=== PATIENT | male | born 1970 | race Caucasian/White ===

== ENCOUNTER → 2019-10-04 08:20 | Outpatient (CLI) | payer OTHER, SELFPAY ==
[2019-10-04 10:04] LABS: Erythrocyte Sedimentation Rate 11 mm/hr (0-20)
[2019-10-04 10:08] LABS: Absolute Lymphocyte Count 0.97 X10^3/uL (0.83-4.51); Absolute Neutrophil Count 3.6 X10^3/uL (2.0-7.7); Basophil# 0.05 X10^3/uL; Basophil% 0.9 % (0-1); Eosinophil# 0.18 X10^3/uL; Eosinophils% 3.4 % (0-5); Hematocrit 43.9 % (40-54); Hemoglobin 14.8 g/dL (13.0-16.5); Lymphocyte # 0.97 X10^3/ul (4.0); Lymphocyte % 18.3 % (19-41); Mean Corp Hgb Conc 33.7 g/dL (32-36); Mean Corpuscular Hgb 29.7 pg (27.0-32.0); Mean Corpuscular Volume 88.2 fL (80-94); Mean Platelet Vol. 11.2 fl (6.2-12.0); Monocyte# 0.47 X10^3/uL; Monocyte% 8.9 % (0-10); NRBC Flagged by Analyzer 0 % (0-5); Neutrophil # 3.62 X10^3/uL (2.7-7.7); Neutrophil % 68.1 % (47-70); Platelet Count 167 K/mm3 (150-450); RBC Distribution Width CV 12.9 % (11.6-14.6); RBC Distribution Width SD 41.1 fl (35.1-43.9); Red Blood Count 4.98 M/mm3 (4.6-6.2); White Blood Count 5.3 K/mm3 (4.4-11.0)
[2019-10-04 10:31] LABS: CRP 3.76 mg/L (0.0-3.0)
== END ==
PROVIDERS: Referring Provider Physician Assistant; Visit Provider Physician Assistant
DX: M17.12 Unilateral primary osteoarthritis, left knee (principal)
CPT/HCPCS: 36415; 85025; 85652; 86140

== ENCOUNTER 2021-07-09 08:39 | Outpatient (RCR) | payer OTHER, SELFPAY | END 2021-08-01 23:59 | LOC: DC 08:39 | PROVIDERS: Visit Provider Family Medicine | DX: E11.9 Type 2 diabetes mellitus without complications (principal) | CPT/HCPCS: 97802 ==

== ENCOUNTER 2021-08-05 14:24 | Outpatient (CLI) | payer OTHER, SELFPAY ==
--- NOTE | 2021-08-05 14:28 | CT_ITS ---
STUDY: CT LEFT LOWER EXTREMITY WITHOUT CONTRAST REASON FOR EXAM: Left knee osteoarthritis, surgical planning. TECHNIQUE: Transaxial CT imaging of the lower extremity was performed. Coronal and sagittal images were reformatted. Individualized dose optimization techniques were used for this CT. COMPARISON: None. FINDINGS: Knee: There are postoperative changes of the distal femur and proximal tibia with orthopedic hardware from anterior cruciate ligament reconstruction. There is arthrosis of the medial femorotibial compartment with marginal osteophytes, subchondral eburnation of the medial tibial plateau and joint space narrowing (coronal reconstruction 36). There are marginal osteophytes of the lateral femorotibial compartment with preservation of joint space. There is arthrosis of the patellofemoral compartment with marginal osteophytes and joint space narrowing at the medial aspect (axial image 359). Normal proximal tibiofibular articulation. There is a small joint effusion. The quadriceps tendon is grossly normal. There is a small ossification in the proximal patellar tendon. Normal Hoffa''s fat pad. There are multiple intra-articular bodies. There is chondrocalcinosis. Hip: There is joint space narrowing at the anterior superior aspect of the left hip joint (sagittal reconstruction 39). Ankle: There is preservation of joint space of the tibiotalar articulation. There is an anterior spur of the talar neck (sagittal reconstruction 20). There is mild joint space narrowing of the medial aspect of the posterior subtalar articulation (sagittal reconstruction 18). There is an orthopedic screw transfixing a calcaneal osteotomy. There is an os trigonum. There are anchors in the lateral malleolus. There is soft tissue swelling. CT/Extremity Lower without Contra IMPRESSION: Left knee osteoarthritis. Electronically Signed: Jeffery Hoang MD at 14:59 EST Tel , Service support ,
== END 2021-08-05 23:59 | disposition short-term general hospital (02) ==
LOC: CT 14:25
PROVIDERS: Referring Provider Physician Assistant; Visit Provider Physician Assistant
DX: M17.12 Unilateral primary osteoarthritis, left knee (principal)
CPT/HCPCS: 73700

== ENCOUNTER 2021-08-06 08:30 | Outpatient (RCR) | payer OTHER, SELFPAY | END 2021-09-01 23:59 | LOC: DC 08:30 | PROVIDERS: Visit Provider Family Medicine | DX: E11.9 Type 2 diabetes mellitus without complications (principal) | CPT/HCPCS: G0108 ==

== ENCOUNTER 2021-08-18 17:42 | Observation (INO) | payer OTHER, SELFPAY ==
--- NOTE | 2021-08-14 10:52 | EKG12_ITS ---
Test Reason : PRE OP Blood Pressure : / mmHG Vent. Rate : 067 BPM Atrial Rate : 067 BPM P-R Int : 178 ms QRS Dur : 086 ms QT Int : 404 ms P-R-T Axes : 038 058 041 degrees QTc Int : 426 ms Normal sinus rhythm Normal ECG Confirmed by KALPESH WILLIAMSON, RODRICK ([id number]), mapping editor GRACE MARSHALL ([id number]) on 08/15/2021 7:46:54 AM Referred By: Skip Cade Confirmed By:PIPE POSEY MD
--- NOTE | 2021-08-14 11:35 | RAD_ITS ---
STUDY: X-RAY CHEST REASON FOR EXAM: Male, 50 years old. PREOP TECHNIQUE: PA and lateral views of the chest. COMPARISON: None. FINDINGS: The lungs are clear and expanded. There is no demonstrated pleural abnormality. Normal size heart. Normal mediastinum and suleiman. Normal visualized pulmonary arteries. Normal visualized aortic arch and descending thoracic aorta. There are degenerative changes of the visualized thoracic spine. Normal visualized ribs, clavicles, and shoulders. There is no demonstrated abnormality of the visualized soft tissue structures of the upper abdomen. RAD/Chest PA and Lateral IMPRESSION: Normal x-ray examination of the chest. Electronically Signed: Roger Horn MD at 15:42 EST , Service support ,
[2021-08-14 12:42] LABS: Magnesium 2.2 mg/dL (1.6-2.6)
[2021-08-18] VITALS (15 sets, daily range): BP systolic 120–143; BP diastolic 68–96; PULSE 67–87; RESP 14–19; TEMP 35.7–37; O2SAT 90–98; BMI 44.5
[2021-08-18] MEDS: Gabapentin 600 MG Tablet PO (08:50)
[2021-08-18] MEDS: Celecoxib 200 MG Capsule 400 MG PO (08:50)
[2021-08-18] MEDS: Acetaminophen 500 MG Tablet 1000 MG PO ×2 (08:51→20:02)
[2021-08-18] MEDS: Lactated Ringers 1,000 ML 15 ML IV (08:52)
[2021-08-18 09:15] LABS: Bedside Glucose 159 mg/dL (70-110)
[2021-08-18] MEDS: Cefazolin 2 GM in 0.9% Normal Saline 100 ML IV (10:13)
--- NOTE | 2021-08-18 10:30 | KNEE_PTH ---
PATIENT: MYRA KEMP LOC: MS2 U#:[id number] AGE/SX: 50/M ROOM: [facility] [place]08/18/[address]: Dr. Skip Cade DO : 1970 BED: 1 DIS: 08/19/2021 SPEC #: [id number] RECD: 08/19/21 09:12 STATUS: SULMA RERen #: [id number] KRISTAN: 08/18/21 10:[address]: Skip Cade DEPT: SURGICAL PATHOLOGY RECD BY: Clare Narvaez ENTERED: 08/19/21 10:12 SP TYPE: TOTAL KNEE OTHR DR: Dr. Lea Tai MD Tissues: Knee, NOS Procedures: Decalcification bone/plaque Surgery Specimen Level IV HEADER OPERATION: ERAS, total knee replacement robotic arm assist PRE-OP DIAGNOSIS: Grade 4 osteoarthritis left knee TISSUE SUBMITTED: Debrided bone and tissue left knee MICROSCOPIC DIAGNOSIS Bone and tissue of left knee, total knee resection: Severe degenerative joint disease. Mild synovial hyperplasia. AM:saran 08/22/2021 MICROSCOPIC DESCRIPTION Slides are reviewed. GROSS DESCRIPTION Received is one container designated debrided bone and tissue left knee. The specimen consists of multiple fragments of rajan-yellow bone measuring in aggregate 10 x 10 x 4 cm. Also in the specimen container are multiple fragments of yellow-white soft tissue measuring in aggregate 10 x 8 x 3.5 cm. A piece of bone consistent with loose body is also present measuring 1 cm in greatest dimension. A number of bony fragments contain articular surfaces consistent with tibial plateau and femoral condyle and displaying prominent osteophyte formation, eburnation, and bone erosion. Patient Navigator sections are submitted in two cassettes as follows: 1 - soft tissue, 2 - bone after decalcification. / SJ:saran 08/19/2021 TC:5 CPT: 68063, 91268
[2021-08-18] MEDS: TXA 1000mg in NS100 100ml (IVPB at Incision) 660 MG IV (10:31)
[2021-08-18] MEDS: TXA 1000mg in NS100 100ml (IVPB at Closure) 660 MG IV (11:40)
--- NOTE | 2021-08-18 11:49 | OP.PCM_ITS ---
Report of Operation Date of Procedure: 08/18/21 Pre-Operative Diagnosis: OA left knee s/p remote ACL reconstruction Post-Operative Diagnosis: same Surgery/Procedure Performed:: Left TKR Description of Surgical Findings:: Report of Operation Date of Procedure: 08/18/2021 Preoperative Diagnosis: [ left ] knee primary osteoarthritis Postoperative Diagnosis: [left ] knee primary osteoarthritis Operation: Robotic Assisted Knee Total Arthroplasty, [left ] knee Surgeon: Dr Skip Cade DO Lead Machinist: Main Almazan PA-C Anesthesia: general Anesthesiologist: Gregorio Ahn M.D. Findings: Stable knee with good patella tracking Specimen(s): Bony cuts Complications: No intraoperative complications Estimated Blood Loss: 30 cc IV Fluids: 1000 cc crystalloid Implants Used: 1. [place] Triathlon size 5 CR press-fit femur 2. [place] [employer]ath[employer] size 6 tibia 3. 35 mm patella 4. 9 mm CS polyethylene Brief History Operative Indications: [ (50 y/o male) ] with history of [ left ] knee osteoarthrosis with radiographic findings with loss of joint space, osteophyte formation and subchondral sclerosis. Failed conservative measures as mentioned in the H&P. Discussion of total knee arthroplasty as well as risk and benefits were discussed with the patient including but not limited to blood loss, DVTs, PEs, neurovascular damage, general risk of anesthesia including loss of life, and stiffness or instability were also discussed with the patient. Patient demonstrated understanding and was able to sign informed consent. Procedure: On the date of procedure, patient's [ left ] lower extremity was marked in the preoperative area. The patient was then taken back to the operating room where that patient was placed on the table in the supine position. All bony prominences were identified and well-padded. Anesthesia assumed control of the C-spine and airway throughout the remainder of the procedure. A tourniquet was placed on the [left ] upper thigh and the leg was prepped in a sterile fashion. The surgeon then scrubbed at this time. Upon reentering the room, the [ left ] lower extremity was draped in a standard orthopedic fashion. A timeout was then called and everyone agreed upon the side, the site, the procedure to be performed, patient's identity and antibiotics given. Esmarch bandage was used to exsanguinate the extremity and the tourniquet was placed up to 250 mmHg with the knee in flexion. A midline skin incision was made and a sharp dissection was taken down through skin, subcutaneous tissue and fat. The standard medial parapatellar incision was made and the patella was subluxed laterally. An appropriate deep MCL release was done and the fat pad was resected. Our attention was then directed to the patella. The patella was everted and a flat resection was made. The knee was then flexed up and 2 femoral pins were placed inside the incision and 2 tibial pins were placed outside the incision in the medial tibia bicortically. Once this was completed, the 2 checkpoints in the femur and tibia were placed. Knee was then flexed up and the bony landmarks were registered. Once the was completed, the knee taken through range of motion and manually stressed allowing us to plan for an appropriate tibial cut. The robotic arm was brought into the field sterilely and checkpoint and saw were registered. Based on the patient's deformity, the tibial cut was made in [ 1 degree varus ]. At this time, the tensioner was then placed in the joint and ligament tension was checked at 90 degrees and full extension. Based on the patient's ligamentous tension, appropriate adjustments were made to the operative plan and ligament releases were done. Once we were happy with our operative plan with balanced flexion and extension gaps, our attention was directed to the femur. The robot was brought into the field sterilely and registered. Posterior condylar cuts, anterior chamfer cuts and anterior cuts were appropriately made for a [ size 5 ] femur. When these were completed, the saws were switched out in the distal femoral and posterior chamfer cuts were made. Protecting the soft tissue throughout this time. A [size 6 ] base plate was selected. The knee was flexed to 90 degrees and soft tissues and posterior osteophytes were removed from the joint. 40 cc of the periarticular injection was injected into the posterior medial corner of the joint. The appropriate trials were then placed on the femur and tibia. A trial polyethylene was trialed to ensure proper balancing and stability of the knee. The appropriate tibial internal rotation was then marked with a bovie. Our attention was then directed to the patella. The lug holes were drilled and the patella trial was placed. Patellar tracking was checked and deemed appropriate. Once we were happy, lug holes were drilled for the femur and trial components were removed. The tibia was subluxed and pinned into place and the keel was punched and drilled appropriately. Final components were verified and opened. The wound was copiously irrigated with normal saline. The components were impacted into place with the tibia, femur and finally the patella. The trial poly component was placed and the knee was placed in full extension. The tracking, alignment and balance were verified and a [ ] polyethylene component was placed. Once the final components were placed an Irrisept lavage was performed and the wound was copiously irrigated with normal saline solution and the periarticular injection was given. the wound was closed in a layer-mcneill fashion using #1 vicryl interrupted sutures for the arthrotomy, 2-0 interrupted vicryl suture for the subcuticular layer and dean for final skin closure. A sterile compressive dressing was then placed. The patient was then awakened from anesthesia, transferred to the [facility] and transferred to the PACU for recovery. My physician medical assistant internal medicine was a vital part of this case. He was important in appropriate retraction during the case, and protection of soft tissues during bony cuts. His intimate knowledge of the case and my steps aided in safe and expedient completion of the procedure as well as appropriate position of the leg during the case. He was also vital in assisting with closure under my direct supervision. Due to the complexity of this case, robotic arm was used to assist in the surgery to improve accuracy and clinical outcomes. Post-op Plan: DVT ppx; ASA 81 mg BID, thigh high compression stockings Follow up: in office in 2 weeks for wound check PT: to start POD #0 at hospital, outpatient PT should be arranged. Preoperative antibiotic: Ancef 3 grams IV Skip Cade DO Surgeon: Skip aCde electric wheelchair repairer: Main Almazan Type of Anesthesia: General/Regional Anesthesiologist: Gregorio Ahn Estimated Blood Loss (mL): 30 cc Fluids Replaced: 1000 cc crystalloid Admit VTE Documentation VTE Present on Admission: No VTE Mechan Device Prophylaxis: SCD's and Knee High DAVE Hose VTE Pharm Prophylaxis ordered?: Yes
[2021-08-18] MEDS: Lactated Ringers 1,000 ML 999 ML IV (12:16)
--- NOTE | 2021-08-18 12:45 | RAD_ITS ---
STUDY: X-RAY - LEFT KNEE REASON FOR EXAM: Male, 50 years old. Post op tkr -- in PACU TECHNIQUE: 2 view(s) of the knee. COMPARISON: None. FINDINGS: Normal visualized distal femur. Normal visualized proximal tibia and fibula. Normal proximal tibiofibular articulation. The patient is status post total knee replacement. There is good alignment. Postoperative soft tissue changes. RAD/Knee 1 or 2 Views IMPRESSION: Status post total knee replacement. There is good alignment. Postoperative soft tissue changes. Electronically Signed: Roger Horn MD at 14:51 EST , Service support ,
[2021-08-18] MEDS: Lactated Ringers 1,000 ML 125 ML IV (14:02)
[2021-08-18] MEDS: oxyCODONE 5 MG Tablet PO (20:02)
[2021-08-18] MEDS: 0.9% Normal Saline 1,000 ML 125 ML IV (20:06)
[2021-08-19] MEDS: oxyCODONE 5 MG Tablet PO ×2 (00:09→10:25)
--- NOTE | 2021-08-19 00:24 | PCS.PANDOC ---
PANDEMIC DOCUMENTATION INITIATED: Date: 08/18/2021 Time: 747
[2021-08-19] MEDS: 0.9% Normal Saline 1,000 ML 125 ML IV (03:05)
[2021-08-19 04:00] VITALS: BP 148/76; PULSE 74; RESP 18; TEMP 36.8; O2SAT 95
[2021-08-19] MEDS: Acetaminophen 500 MG Tablet 1000 MG PO (05:53)
[2021-08-19 08:09] VITALS: BP 124/75; PULSE 83; RESP 16; TEMP 36.4; O2SAT 96
--- NOTE | 2021-08-19 08:14 | PN.ORTHO_ITS ---
Subjective Subjective Patient sitting up in bed. Patient states pain has been very well managed. Patient denies chest pain, shortness of breath, calf pain, nausea vomiting. Per nursing patient's dressing has been changed once since this time is continued to stay dry. Patient states he is ready for discharge home. Patient also reports he does have all of his postop medications which were refilled preoperatively at home. Objective Data Objective Data Vital Signs: Vital Signs Temp Pulse Resp BP Pulse Ox 97.6 F L 83 16 124/75 H 96 08/19/21 08:09 08/19/21 08:09 08/19/21 08:09 08/19/21 08:09 08/19/21 08:09 Oxygen Flow Rate (L/min) 4 Oxygen Delivery Method Room Air Weight: 149 kg Body Mass Index (BMI) 44.5 Intake & Output: Intake and Output for Last 24 Hours 08/17/21 08/18/21 08/19/21 23:59 23:59 23:59 Intake Total 3188.33 / 4188.33 2672.92 / 2672.92 Output Total 2350 / 2350 Balance 3188.33 / 3038.33 322.92 / 322.92 Lab / Micro Data Labs: Laboratory Results - last 24 hr 08/18/21 08:36: POC Glucose 159 H Micro: Microbiology 08/14/21 11:16 Swab (Method) Nasal Screen MRSA/MSSA - Final 08/14/21 11:10 Interface Orders SARS-CoV-2 Antigen (Rapid) - Final Radiography Diagnostic Testing: Radiology Impression Knee X-Ray 08/18/21 12:45 IMPRESSION: Status post total knee replacement. There is good alignment. Postoperative soft tissue changes. Electronically Signed: Roger Horn MD at 14:51 EST , Service support , Physical Exam Narrative Patient lying in bed alert oriented. Patient in no respiratory distress. Patient speaking in full sentences. No calf tenderness, no signs and symptoms of DVT. Neurovascular is otherwise intact. Dressing is clean dry intact. Incisions clean dry intact. Const alert and oriented x3 Neuro CN's II-XII intact bilaterally Psych mental status grossly normal and affect normal Assessment & Plan Assessment/Plan (1) Status post total left knee replacement not using cement: PLAN: 1. Continue all pain medications as prescribed 2. Aspirin 81 mg 1 p.o. every 12 hours x30 days for postop DVT prophylaxis 3. Encourage incentive spirometry 4. Meet with therapy prior to discharge home. 5. Replace AG dressing prior to discharge after therapy. 6. Patient will continue outpatient physical therapy at [facility] [place] 7. Discharge home
--- NOTE | 2021-08-19 08:18 | EX.PCM.DISCH ---
Discharge Instructions Diet Discharge Diet: No restrictions Activity Discharge Activity: May Not Drive, May Shower and Use Walker May shower in (days): 3 May resume sexual activity in: No Restrictions Ice area for (Minutes): 30 (every hour while awake.) Weight Bearing Status: Weight bearing as tolerated Keep extremity elevated above heart level: Operative Extremity Dressing / Incision Call your doctor if your incision/area has: Continuous Slow Oozing, Sudden Increased Bleeding, Increased Pain/ Swelling, Increased Redness and Foul Smelling Discharge Call your doctor if you observe: Fever of 101 or Higher, Coldness, Increased Pain, Numbness or Tingling, Change in Color, Shortness of breath, Calf discomfort and Uncontrolled pain Change Dressing in: leave in place till F/U Remove Dressing in: leave in place till F/U Follow Up Care Please Follow Up With: Main Almazan PA-C When: Please call [phone] to schedule a follow up appointment. Test Results: Test results from this visit will be discussed in further detail at your follow-up appointment, if applicable. Discharge Plan Admission Admit Date/Time: 08/18/21 17:42 Primary Reason for Your Visit: Left total knee replaced Attending Provider: Skip Cade Primary Care Provider: Lea Tai Discharge Orders/Prescriptions Prescriptions: No Action NK RF: 0 Other Ambulatory Orders: 12 Lead EKG (Routine) Timeframe: [id number] Location: None Selected Ordered By: Dr. Skip Cade Referrals / Follow Up: Lea Tai MD [Primary Care Provider] - Disposition Disposition (needs filled in before D/C Order can be placed): Home, Self Care
--- NOTE | 2021-08-19 10:45 | CASEMGMT ---
RICHARD LOO Face to Face with patient for initial transition planning/care coordination assessment. RN EEZ introduced self and role at [facility]. Patient lying in bed, alert and oriented, at bedside. Patient willing to participate in assessment and is able to answer all questions appropriately. Care providers, pharmacy, and demographics verified. Patient wishes to discharge home and is setup with [facility] for outpatient therpay. Patient states he has no further needs or concerns at this time. CM to follow for discharge planning needs that may arise. PCP: [facility] Specialists: dona Cade; [place], urologist Preferred Pharmacy: [facility] Insurance: MMO Prescription Benefit: Yes Living Will/HPOA: yes, Haily Love LNOK: Living Arrangements: Patient lives with in a 2 story home with bed and bath on first floor. No steps to enter. Patient was independent at home prior to surgery Transportation: DME/HHC: patient states he has raised toilet, cane, crutches, walker, grab bars, and cpap at home. Patient is scheduled for outpatient therapy at [facility] starting Wednesday. Disposition Plan: Patient to discharge home with outpatient therapy, family support, and follow-up plans in place. Anusha CATALAN, RN, CM
--- NOTE | 2021-08-19 11:44 | NURSING ---
changed dressing mepilex ag applied with acewrap dressing supplies given to pt and .
== END 2021-08-19 12:00 | disposition home or self-care (01) ==
LOC: SDC 17:47 → MS2 19:21
PROVIDERS: Anesthesiology; Admitting Provider Orthopaedic Surgery; PCP Family Medicine; Referring Provider Orthopaedic Surgery; Visit Provider Orthopaedic Surgery
PROC: 0SRD0JZ Replacement of Left Knee Joint with Synthetic Substitute, Open Approach (ICD-10-PCS; CPT 27447; principal; 2021-08-18 10:00)
DX: M17.12 Unilateral primary osteoarthritis, left knee (principal); E11.9 Type 2 diabetes mellitus without complications; G47.33 Obstructive sleep apnea (adult) (pediatric); Z79.899 Other long term (current) drug therapy; Z86.16 Personal history of COVID-19; K76.0 Fatty (change of) liver, not elsewhere classified
CPT/HCPCS: 27447; S2900; 64447; 36415; 71046; 73560; 82962; 83735; 87081; 87426; 88305; 88311; 93005; 96360; 96361; 97110; 97162; 99218; 99251; C1776; C9803; J7030; J7120; G0378; G0463; J2405

== ENCOUNTER → 2022-03-05 | Outpatient (CLI) | payer OTHER, SELFPAY ==
[2022-03-05 11:51] LABS: Absolute Lymphocyte Count 0.81 X10^3/uL (0.83-4.51); Absolute Neutrophil Count 3.8 X10^3/uL (2.0-7.7); Basophil# 0.04 X10^3/uL; Basophil% 0.8 % (0-1); Eosinophil# 0.13 X10^3/uL; Eosinophils% 2.5 % (0-5); Hematocrit 45.1 % (40-54); Hemoglobin 15.4 g/dL (13.0-16.5); Lymphocyte # 0.81 X10^3/ul (0.83-4.51); Lymphocyte % 15.6 % (19-41); Mean Corp Hgb Conc 34.1 g/dL (32-36); Mean Corpuscular Volume 87.7 fL (80-94); Mean Platelet Vol. 10.2 fl (6.2-12.0); Monocyte# 0.41 X10^3/uL; Monocyte% 7.9 % (0-10); NRBC Flagged by Analyzer 0 % (0-5); Neutrophil # 3.78 X10^3/uL (2.7-7.7); Neutrophil % 72.6 % (47-70); Platelet Count 168 K/mm3 (150-450); RBC Distribution Width CV 13.1 % (11.6-14.6); RBC Distribution Width SD 42.3 fl (35.1-43.9); Red Blood Count 5.14 M/mm3 (4.6-6.2); White Blood Count 5.2 K/mm3 (4.4-11.0)
[2022-03-05 23:29] LABS: Erythrocyte Sedimentation Rate 18 mm/hr (0-20)
== END | disposition home or self-care (01) ==
PROVIDERS: PCP Family Medicine; Visit Provider Physician Assistant
DX: Z96.652 Presence of left artificial knee joint (principal)
CPT/HCPCS: 36415; 85025; 85652; 86140

== ENCOUNTER → 2022-03-10 | Outpatient (CLI) | payer OTHER, SELFPAY ==
[2022-03-10 09:20] LABS: Pathologist Comment May follow
[2022-03-10 10:02] LABS: RBC /Synovial Fluid 0.058 10^6/uL (0); Synovial Fld Mononuclear WBC # 0.263 10^3/ul; Synovial Fld Mononuclear WBC % 59.9 %; Synovial Fld Polynuclear WBC # 0.176 10^3/uL; Synovial Fld Polynuclear WBC % 40.1 %
[2022-03-10 10:04] LABS: AUTO B FLUID DILUENT BKGD CT WBC <0.1 RBC <0.01 (W<.1,R<.01)
[2022-03-10 10:05] LABS: Appearance /Synovial Fluid Hazy (CLEAR); Color / Synovial Fluid Bloody (Pale Yellow); Source / Synovial Fluid L KNEE; Source- Body Fluid SYNOVIAL
[2022-03-10 11:00] LABS: Lymph 15 %; Monocyte /Synovial Fluid 41 %; Neutrophil 34 % (0-25); Other Cell /Synovial Fluid 10 %
[2022-03-10 11:02] LABS: Body Fluid QC Type(s) BF1Q
[2022-03-11 12:34] LABS: Pathologist Review Reviewed
== END | disposition home or self-care (01) ==
LOC: LABSPEC 09:01
PROVIDERS: PCP Family Medicine; Visit Provider Physician Assistant
DX: Z96.652 Presence of left artificial knee joint (principal)
CPT/HCPCS: 87015; 87070; 87075; 87101; 87116; 87205; 87206; 89050; 89051; 89060